=== PATIENT | male | born 1950 | race Caucasian/White ===

== ENCOUNTER 2017-03-17 09:10 | Emergency (ER) | payer OTHER ==
[~2017-03-17 09:10] MED LIST: ATHLETE S FOOT TP; BACTERICIN30 GM TP; GLUCOTROL5 MG PO; HYDROCHLOROTHIA25 MG PO; LIPITOR40 MG PO; LO-DOSE ASPIRIN81 M1 PO; METFORMIN HCL1000 MG PO; NORVASC5 MG PO; ONGLYZA5 MG PO; PERCOCET 5/31 TABLET PO; PROAIR RESPICL90 MCG IH; PULMICORT FLEX90 MCG IH; SPIRIVA1 INHALATI IH; VASOTEC5 MG PO; ZOFRAN4 MG PO
[2017-03-17 09:15] VITALS: BP 110/63
[2017-03-17] MEDS ORDERED: COZAAR50 MG PO (09:46)
[2017-03-17] MEDS ORDERED: AMLODIPINE BESYL5 MG PO (09:48)
[2017-03-17] MEDS ORDERED: ASPIR 8181 M1 PO (09:48)
[2017-03-17] MEDS ORDERED: ONGLYZA2.5 MG PO (09:49)
== END 2017-03-17 10:32 | disposition home or self-care (01) ==
LOC: EME 09:10
DX: S83.92XA Sprain of unspecified site of left knee, initial encounter (principal); X58.XXXA Exposure to other specified factors, initial encounter; E11.9 Type 2 diabetes mellitus without complications; Z79.84 Long term (current) use of oral hypoglycemic drugs; Z79.82 Long term (current) use of aspirin
CPT/HCPCS: 73564; 99281; 99283

== ENCOUNTER 2017-05-03 23:18 | Emergency (ER) | payer OTHER ==
[~2017-05-03] VITALS: Ht 177.8 cm; Wt 126.9 kg
[~2017-05-03 23:18] MED LIST changes: +AMLODIPINE BESYL5 MG PO; +ASPIR 8181 M1 PO; +COZAAR50 MG PO; +ONGLYZA2.5 MG PO
[2017-05-04 00:41] VITALS: BP 151/82
== END 2017-05-04 00:41 | disposition home or self-care (01) ==
LOC: EME 23:18
DX: H11.31 Conjunctival hemorrhage, right eye (principal); E11.9 Type 2 diabetes mellitus without complications; Z79.84 Long term (current) use of oral hypoglycemic drugs; Z79.82 Long term (current) use of aspirin; Z85.51 Personal history of malignant neoplasm of bladder; Z87.891 Personal history of nicotine dependence
CPT/HCPCS: 99281; 99283